=== PATIENT | female | born 1975 | race African-American/Black ===

== ENCOUNTER 2021-03-21 10:11 | Inpatient (IN) ==
[2021-03-15 12:39] LABS: Basophils % 0.5 % (0.0-0.8); Eosinophils # 0.1 10*3/uL (0.0-0.87); Eosinophils % 2.3 % (0.00-10.9); Hematocrit 40.3 VOL% (35.7-47.0); Hemoglobin 13.3 GM/DL (12.0-16.0); Immature Granulocytes % 0.3 %; Immature Granulocytes Absolute 0.02 #; Lymphocytes # 2.8 10*3/uL (1.4-4.0); Lymphocytes % 45.8 % (21.3-54.2); Mean Corpuscular Volume 91.6 FL (87-102); Monocytes % 7.4 % (1.7-12.7); Neutrophils % 43.7 % (38.7-73.9); Platelet Count 325 T/CUMM (130-400); White Blood Count 6.1 T/CUMM (4-12)
[2021-03-15 12:48] LABS: Bilirubin,Urine Negative (Negative); Blood, Urine Negative (Negative); Glucose,Urine (UA) Negative (Negative); Ketones,Urine Negative (Negative); Mucus,Urine Few /LPF (Occasional); Nitrite,Urine Negative (Negative); Protein,Urine Negative; RBC,Urine 1 /HPF (0-4); Squamous Epithelial Cell,Urine Few /HPF (0-10); Urine Appearance CLEAR (Clear); Urine Color Yellow (Yellow); Urine Urobilinogen < 2.0 EU/DL (0.2-1.0)
[2021-03-15 13:15] LABS: Atypical Lymphocytes Few; Eosinophils 5 % (0-10); Lymphocytes 47 % (20-55); Platelet Estimate Normal; Polychromasia Slight; Segmented Neutrophils 45 % (50-85); Total Cells Counted 100
[2021-03-15 13:18] LABS: Albumin 4.1 G/DL (3.4-5.0); Bilirubin,Total 0.6 MG/DL (0.20-1.00); Calcium 9.1 MG/DL (8.5-10.1); Osmolality,Calculated 272.7 MOS/KG (273-304); Risk Ratio 4.58; VLDL Cholesterol 15.2 MG/DL
[2021-03-15 14:04] LABS: HIV Antigen/Antibody Result Nonreactive (Nonreactive)
[~2021-03-21 10:11] MED LIST: AMPICILLIN/SULBACTAM 3,000 MG in SODIUM CHLORIDE 0.9% 100 ML IV ONE
[2021-03-21] MEDS ORDERED: FAMOTIDINE 20 MG TABLET PO ONE (11:48)
[2021-03-21] MEDS ORDERED: GABAPENTIN 400 MG CAPSULE PO ONE (11:48)
[2021-03-21] MEDS ORDERED: DIAZEPAM 5 MG TABLET PO ONE (11:48)
[2021-03-21] MEDS ORDERED: ACETAMINOPHEN 500 MG TABLET PO ONE (11:48)
[2021-03-21] MEDS ORDERED: LACTATED RINGERS 1,000 ML IV SCH (12:00)
[2021-03-21] MEDS ORDERED: LIDOCAINE 2% 5 ML VIAL ONE (13:24)
[2021-03-21] MEDS ORDERED: ROCURONIUM 50 MG/5 ML VIAL IV ONE (13:24)
[2021-03-21] MEDS ORDERED: SUCCINYLCHOLINE 200 MG/10 ML VIAL ONE (13:24)
[2021-03-21] MEDS ORDERED: propofoL 200 MG/20 ML VIAL IV ONE ×2 (13:24→15:40)
[2021-03-21] MEDS ORDERED: ONDANSETRON 4 MG/2 ML VIAL ONE (13:24)
[2021-03-21] MEDS ORDERED: SEVOFLURANE 1 UNIT/15 MINUTE INH ONE (13:32)
[2021-03-21] MEDS ORDERED: MIDAZOLAM 2 MG/2 ML VIAL ONE (13:33)
[2021-03-21] MEDS ORDERED: fentaNYL 100 MCG/2 ML VIAL ONE (13:33)
[2021-03-21] MEDS ORDERED: LIDOCAINE 1% 5 ML VIAL ONE (13:35)
[2021-03-21] MEDS ORDERED: DEXAMETHASONE 4 MG/1 ML VIAL ONE ×2 (13:35→14:29)
[2021-03-21] MEDS ORDERED: ROPIVACAINE 0.5% 30 ML VIAL ONE (13:36)
[2021-03-21] MEDS ORDERED: ACETAMINOPHEN INJ 1,000 MG/100 ML VIAL IV ONE (13:44)
[2021-03-21] MEDS ORDERED: SUGAMMADEX 200 MG/2 ML VIAL IV ONE (15:35)
[2021-03-21] MEDS ORDERED: HYDROmorphone 2 MG/1 ML VIAL ONE (16:04)
[2021-03-21 16:26] LABS: Amorphous Crystals,Urine Occasional /HPF (Few); Bilirubin,Urine Negative (Negative); Blood, Urine Negative (Negative); Glucose,Urine (UA) Negative (Negative); Ketones,Urine Negative (Negative); Mucus,Urine Occasional /LPF (Occasional); Nitrite,Urine Negative (Negative); Protein,Urine Negative; Urine Appearance CLEAR (Clear); Urine Color Straw (Yellow); Urine Specific Gravity 1.012 (1.001-1.035); Urine Urobilinogen < 2.0 EU/DL (<2.0)
[2021-03-21] MEDS ORDERED: INFLUENZA VIRUS VACCINE 0.5 ML SYRINGE IM ONE (17:52)
[2021-03-21] MEDS ORDERED: ACETAMINOPHEN 325 MG TABLET PO PRN (18:04)
[2021-03-21] MEDS ORDERED: ONDANSETRON 4 MG/2 ML VIAL IV PRN (18:04)
[2021-03-21] MEDS ORDERED: BENZOCAINE/MENTHOL LOZENGE 18/BOX PO PRN (18:04)
[2021-03-21] MEDS ORDERED: BISACODYL 10 MG SUPP RECTAL PRN (18:04)
[2021-03-21] MEDS: LACTATED RINGERS 1,000 ML IV SCH (18:52)
[2021-03-21] MEDS: HYDROmorphone 2 MG/1 ML VIAL IV PRN ×2 (18:56→22:42)
[2021-03-21] MEDS ORDERED: KETOROLAC 30 MG/1 ML VIAL IV ONE (19:36)
[2021-03-21] MEDS ORDERED: KETOROLAC 30 MG/1 ML VIAL IV SCH (23:00)
[2021-03-21] MEDS ORDERED: KETOROLAC 30 MG/1 ML VIAL IV PRN (23:15)
[2021-03-22 00:43] LABS: Basophils % 0.1 % (0.0-0.8); Hematocrit 37.6 VOL% (35.7-47.0); Hemoglobin 12.3 GM/DL (12.0-16.0); Immature Granulocytes % 0.5 %; Immature Granulocytes Absolute 0.06 #; Lymphocytes # 1.3 10*3/uL (1.4-4.0); Lymphocytes % 10.2 % (21.3-54.2); Mean Corpuscular HGB Conc 32.7 GM/DL (32-36); Mean Corpuscular Volume 91.9 FL (87-102); Mean Platelet Volume 9.5 FL (9.6-12.0); Monocytes % 3.3 % (1.7-12.7); Neutrophils % 85.9 % (38.7-73.9); Platelet Count 304 T/CUMM (130-400); Red Blood Count 4.09 MC/CUMM (3.8-5.5); Red Cell Distribution Width 12.5 % (9.3-17.3); White Blood Count 12.6 T/CUMM (4-12)
[2021-03-22] MEDS: LACTATED RINGERS 1,000 ML IV SCH (02:10)
[2021-03-22] MEDS: HYDROmorphone 2 MG/1 ML VIAL IV PRN ×2 (02:14→04:30)
[2021-03-22 05:50] LABS: Hemoglobin 11.7 GM/DL (12.0-16.0); Immature Granulocytes % 0.4 %; Immature Granulocytes Absolute 0.04 #; Lymphocytes # 1.5 10*3/uL (1.4-4.0); Lymphocytes % 14.1 % (21.3-54.2); Mean Corpuscular HGB Conc 32.5 GM/DL (32-36); Mean Corpuscular Volume 92.5 FL (87-102); Mean Platelet Volume 9.3 FL (9.6-12.0); Monocytes % 6.8 % (1.7-12.7); Neutrophils % 78.7 % (38.7-73.9); Platelet Count 289 T/CUMM (130-400); Red Blood Count 3.89 MC/CUMM (3.8-5.5); Red Cell Distribution Width 12.5 % (9.3-17.3); White Blood Count 10.3 T/CUMM (4-12)
[2021-03-22 06:18] LABS: Albumin 3.3 G/DL (3.4-5.0); Bilirubin,Total 0.5 MG/DL (0.20-1.00); Calcium 8.4 MG/DL (8.5-10.1); Potassium 3.8 MMOL/L (3.5-5.1)
[2021-03-22] MEDS: IBUPROFEN 800 MG TABLET PO PRN ×2 (09:00→16:16)
[2021-03-22] MEDS: METOCLOPRAMIDE 10 MG/2 ML VIAL IV SCH ×2 (11:58→20:08)
[2021-03-22] MEDS: SIMETHICONE CHEW 80 MG TABLET PO PRN ×2 (13:45→17:53)
[2021-03-22] MEDS: MAGNESIUM HYDROXIDE SUSP 30 ML UDCUP PO PRN (20:08)
[2021-03-22] MEDS: DOCUSATE SODIUM 100 MG CAPSULE PO PRN (20:08)
[2021-03-23] MEDS: IBUPROFEN 800 MG TABLET PO PRN ×2 (00:09→10:56)
[2021-03-23] MEDS: METOCLOPRAMIDE 10 MG/2 ML VIAL IV SCH ×2 (03:28→13:15)
[2021-03-23] MEDS ORDERED: MAGNESIUM CITRATE 300 ML BOTTLE PO ONE (07:18)
[2021-03-23] MEDS: DOCUSATE SODIUM 100 MG CAPSULE PO PRN (08:59)
[2021-03-23 12:31] VITALS: BP 154/89
[2021-03-23] MEDS: MAGNESIUM HYDROXIDE SUSP 30 ML UDCUP PO PRN (13:14)
== END 2021-03-23 17:10 | disposition home or self-care (01) | DRG 742 ==
LOC: N.OR 10:11 → N.SDSINP 11:17 → N.OB 17:35
PROVIDERS: ADMIT Obstetrics & Gynecology; ATTEND Obstetrics & Gynecology